=== PATIENT | male | born 1975 | race Two or more races ===

== ENCOUNTER 2016-11-30 02:57 | Emergency (ER) | payer SELFPAY ==
[~2016-11-30] VITALS: Ht 177.8 cm; Wt 81.6 kg
[2016-11-30] MEDS ORDERED: IBUPROFEN 400 MG TABLET PO ONE (03:30)
[2016-11-30] MEDS ORDERED: IBUPROFEN 400 MG TABLET ONE (03:54)
[2016-11-30 05:00] VITALS: BP 148/97
== END 2016-11-30 05:01 | disposition home or self-care (01) ==
LOC: ER 02:59
DX: S16.1XXA Strain of muscle, fascia and tendon at neck level, initial encounter (principal); S70.02XA Contusion of left hip, initial encounter; S70.01XA Contusion of right hip, initial encounter; M54.5 Low back pain; V49.49XA Driver injured in collision with other motor vehicles in traffic accident, initial encounter; Y93.89 Activity, other specified; Y92.89 Other specified places as the place of occurrence of the external cause; Y99.9 Unspecified external cause status
CPT/HCPCS: 72110; 72125; 72170; 99284; A4606; Z7610